=== PATIENT | male | born 1950 | race Caucasian/White ===

== ENCOUNTER 2016-06-07 05:04 | Inpatient (IN) | payer OTHER, BC ==
[~2016-06-07] VITALS: Ht 177.8 cm; Wt 93.0 kg
[~2016-06-07 05:04] MED LIST: ALLEGRA ALLERG180 MG PO; AMBIEN10 MG PO; ASPIRIN81 M2 PO; CARDIZEM CD360 MG PO; COZAAR100 MG PO; COZAAR50 MG PO; DIAZEPAM5 MG PO; DIGOX250 MCG PO; K-DUR20 MEQ PO; LO-DOSE ASPIRIN81 M2 PO; LOFIBRA134 MG PO; NORVASC5 MG PO; PRAVACHOL80 MG PO; PREDNISONE20 MG PO; TRAMADOL HCL50 MG PO; VALIUM5 MG PO
[2016-06-07 05:53] VITALS: BP 108/64
[2016-06-07] MEDS ORDERED: BACTRIM,SEPT1 TABLE1 PO (10:48)
[2016-06-07] MEDS ORDERED: ENDOCET 5-3251 EACH PO (10:48)
[2016-06-07] MEDS ORDERED: DOCUSATE SODIU100 MG PO (10:48)
[2016-06-07 13:52] VITALS: BP 121/71
[2016-06-07 15:20] LABS: HEMATOCRIT 40.7 % (38.0-50.0); MCV 87.7 FL (86-99)
[2016-06-07 16:42] VITALS: BP 111/65
[2016-06-07 19:08] VITALS: BP 107/62
[2016-06-07 22:30] VITALS: BP 116/56
[2016-06-08 03:09] VITALS: BP 127/61
[2016-06-08 06:08] LABS: HEMATOCRIT 36.7 % (38.0-50.0); MCH 30.5 PG (29.0-34.0); MCHC 34.1 G/DL (30.0-36.0); MCV 89.5 FL (86-99); MEAN PLAT.VOLUME 11.2 uM^3 (9.0-12.4); PLATELET COUNT 205 K/uL (156-360); RBC DIS.WIDTH-CV 14.3 % (11.8-14.6); RBC DIS.WIDTH-SD 46.5 % (39-53)
[2016-06-08 06:09] LABS: WHITE BLOOD COUNT 14.9 K/uL (4.1-10.2)
[2016-06-08 06:36] LABS: ANION GAP 9 MEQ/L (2-14); CHLORIDE 101 MEQ/L (99-109); GFR ESTIMATE (CALCULATED) > 59 mL/min/; GLUCOSE 129 mg/dL (70-99); POTASSIUM 4.2 MEQ/L (3.7-5.4); SAMPLE HEMOLYSIS CHECK 0; SAMPLE ICTERIC CHECK 0; SAMPLE LIPEMIA CHECK 0; SODIUM 136 MEQ/L (136-147); UREA NITROGEN (BUN) 16 mg/dL (9-23)
[2016-06-08 08:42] VITALS: BP 107/60
[2016-06-08 11:04] VITALS: BP 92/55
[2016-06-08 15:23] VITALS: BP 113/65
[2016-06-08 20:13] VITALS: BP 100/57
[2016-06-08 23:33] VITALS: BP 96/53
[2016-06-09] VITALS (9 sets, daily range): BP systolic 90–139; BP diastolic 54–69
[2016-06-10 04:04] VITALS: BP 94/59
[2016-06-10 06:13] LABS: HEMATOCRIT 32.9 % (38.0-50.0); MCH 30.9 PG (29.0-34.0); MCHC 34.3 G/DL (30.0-36.0); MCV 89.9 FL (86-99); MEAN PLAT.VOLUME 11.1 uM^3 (9.0-12.4); PLATELET COUNT 184 K/uL (156-360); RBC DIS.WIDTH-CV 13.4 % (11.8-14.6); RBC DIS.WIDTH-SD 44.1 % (39-53); RED BLOOD COUNT 3.66 M/uL (4.00-5.50); WHITE BLOOD COUNT 10.5 K/uL (4.1-10.2)
[2016-06-10 06:37] LABS: ANION GAP 7 MEQ/L (2-14); CHLORIDE 99 MEQ/L (99-109); GFR ESTIMATE (CALCULATED) > 59 mL/min/; GLUCOSE 119 mg/dL (70-99); POTASSIUM 3.9 MEQ/L (3.7-5.4); SAMPLE HEMOLYSIS CHECK 0; SAMPLE ICTERIC CHECK 0; SAMPLE LIPEMIA CHECK 0; SODIUM 133 MEQ/L (136-147); UREA NITROGEN (BUN) 13 mg/dL (9-23)
[2016-06-10 07:03] VITALS: BP 79/50
== END 2016-06-10 13:40 | disposition home or self-care (01) | DRG 708 ==
LOC: 2SOUTH 05:04 → 5EAST 05:28 → 2SOUTH 09:42 → 5EAST 13:23 → SDC 16:10 → EDSTATUS 16:11 → 2SOUTH 16:12 → 5EAST 06-10 13:40
PROVIDERS: Urology
DX: C61 Malignant neoplasm of prostate (principal); I10 Essential (primary) hypertension; E11.9 Type 2 diabetes mellitus without complications; E78.5 Hyperlipidemia, unspecified; M19.90 Unspecified osteoarthritis, unspecified site; Z87.891 Personal history of nicotine dependence
CPT/HCPCS: 80048; 85014; 85018; 85027; 88305; 88309; 94799; J0131; J0690; J1100; J1170; J2250; J2405; J2710; J3010; J7120; P9016

== ENCOUNTER 2016-08-01 10:45 | Inpatient (IN) | payer OTHER, BC ==
[~2016-08-01] VITALS: Ht 177.8 cm; Wt 98.1 kg
[2016-08-01] VITALS (7 sets, daily range): BP systolic 96–128; BP diastolic 62–80
[~2016-08-01 10:45] MED LIST changes: +BACTRIM,SEPT1 TABLE1 PO; +DOCUSATE SODIU100 MG PO; +ENDOCET 5-3251 EACH PO
[2016-08-01 11:39] LABS: EOSINOPHIL (%) 0.4 % (0-5); HEMATOCRIT 39.8 % (38.0-50.0); IMMATURE GRANULOCYTE (%) 0.3 % (0.0-0.7); INSTRUMENT ABS NEUTROPHIL CT 4.9 K/uL; LYMPHOCYTE COUNT 1.6 K/uL (1.0-2.8); MCH 30.3 PG (29.0-34.0); MCHC 33.4 G/DL (30.0-36.0); MCV 90.7 FL (86-99); MEAN PLAT.VOLUME 11.6 uM^3 (9.0-12.4); NEUTROPHIL (%) 65.1 % (45-76); NEUTROPHIL COUNT 4.9 K/uL (1.8-6.4); PLATELET COUNT 240 K/uL (156-360); RBC DIS.WIDTH-CV 13.9 % (11.8-14.6); RBC DIS.WIDTH-SD 46.5 % (39-53); RED BLOOD COUNT 4.39 M/uL (4.00-5.50); WHITE BLOOD COUNT 7.5 K/uL (4.1-10.2)
[2016-08-01 11:46] LABS: CHLORIDE 108 mEq/L (99-109)
[2016-08-01 11:47] LABS: POTASSIUM 4.4 mEq/L (3.7-5.4); SODIUM 137 mEq/L (136-147)
[2016-08-01 11:48] LABS: GLUCOSE 104 mg/dL (70-99)
[2016-08-01 11:49] LABS: INTER. NORMALIZED RATIO 1.1; PROTHROMBIN TIME 11.6 (9.2-11.2); PTT 25.2 (25-32)
[2016-08-01 11:50] LABS: ANION GAP 10 MEQ/L (2-14)
[2016-08-01 11:52] LABS: GFR ESTIMATE (CALCULATED) > 59 mL/min/
[2016-08-01 11:53] LABS: UREA NITROGEN (BUN) 15 mg/dL (9-23)
[2016-08-01 11:58] LABS: TROP-I INTERPRETATION NEGATIVE; TROPONIN-I < 0.01 ng/mL (0.0-0.30)
[2016-08-01 13:31] LABS: D-DIMER ELISA 0.49 mg/L FEU (< 0.57)
[2016-08-01 13:43] LABS: TROP-I INTERPRETATION NEGATIVE; TROPONIN-I < 0.01 ng/mL (0.0-0.30)
[2016-08-01 18:29] LABS: TROP-I INTERPRETATION NEGATIVE; TROPONIN-I < 0.01 ng/mL (0.0-0.30)
[2016-08-02 05:08] VITALS: BP 111/73
[2016-08-02 06:17] VITALS: BP 91/71
[2016-08-02 06:46] VITALS: BP 103/75
[2016-08-02 07:16] VITALS: BP 107/73
[2016-08-02 08:17] VITALS: BP 106/67
[2016-08-02 09:29] LABS: ANION GAP 9 MEQ/L (2-14); CHLORIDE 105 MEQ/L (99-109); GFR ESTIMATE (CALCULATED) > 59 mL/min/; GLUCOSE 133 mg/dL (70-99); POTASSIUM 4.2 MEQ/L (3.7-5.4); SAMPLE HEMOLYSIS CHECK 0; SAMPLE ICTERIC CHECK 0; SAMPLE LIPEMIA CHECK 0; SODIUM 138 MEQ/L (136-147); UREA NITROGEN (BUN) 15 mg/dL (9-23)
[2016-08-02 12:00] VITALS: BP 115/75
[2016-08-02] MEDS ORDERED: CARDIZEM60 MG PO (16:17)
[2016-08-02] MEDS ORDERED: ELIQUIS5 MG PO (16:17)
== END 2016-08-02 18:11 | disposition home or self-care (01) | DRG 310 ==
LOC: EME 10:45 → EDOF 12:20 → 4EAST 12:20
PROVIDERS: Emergency Medicine; Hospitalist
DX: I48.0 Paroxysmal atrial fibrillation (principal); Z85.46 Personal history of malignant neoplasm of prostate; I11.0 Hypertensive heart disease with heart failure; I50.9 Heart failure, unspecified; E78.5 Hyperlipidemia, unspecified; Z79.82 Long term (current) use of aspirin; Z87.891 Personal history of nicotine dependence
CPT/HCPCS: 71010; 80048; 83735; 83880; 84443; 84484; 85025; 85379; 85610; 85730; 93005; 93306; 99281; 99285; J1940; J7050

== ENCOUNTER 2016-10-18 20:50 | Inpatient (IN) | payer OTHER, BC ==
[~2016-10-18] VITALS: Ht 177.8 cm; Wt 99.4 kg
[~2016-10-18 20:50] MED LIST changes: +CARDIZEM60 MG PO; +ELIQUIS5 MG PO
[2016-10-18 21:29] LABS: HEMATOCRIT 41.4 % (38.0-50.0); MCH 30.7 PG (29.0-34.0); MCHC 35.3 G/DL (30.0-36.0); MEAN PLAT.VOLUME 10.4 uM^3 (9.0-12.4); PLATELET COUNT 167 K/uL (156-360); RBC DIS.WIDTH-CV 13.3 % (11.8-14.6); RBC DIS.WIDTH-SD 42.3 % (39-53); RED BLOOD COUNT 4.76 M/uL (4.00-5.50); WHITE BLOOD COUNT 10.3 K/uL (4.1-10.2)
[2016-10-18 22:12] LABS: ANION GAP 10 MEQ/L (2-14); CHLORIDE 97 MEQ/L (99-109); POTASSIUM 4.2 MEQ/L (3.7-5.4); SAMPLE HEMOLYSIS CHECK 0; SAMPLE ICTERIC CHECK 0; SAMPLE LIPEMIA CHECK 0; SODIUM 131 MEQ/L (136-147)
[2016-10-18 22:18] LABS: GFR ESTIMATE (CALCULATED) > 59 mL/min/; GLUCOSE 118 mg/dL (70-99); UREA NITROGEN (BUN) 16 mg/dL (9-23)
[2016-10-19 00:14] LABS: TROP-I INTERPRETATION NEGATIVE; TROPONIN-I < 0.01 ng/mL (0.0-0.30)
[2016-10-19] MEDS ORDERED: CARDIZEM CD180 MG PO (00:16)
[2016-10-19 02:34] VITALS: BP 131/87
[2016-10-19 08:12] LABS: POINT-OF-CARE METER ID UU13113700
[2016-10-19 08:18] VITALS: BP 123/70
[2016-10-19 10:26] LABS: EOSINOPHIL (%) 0 % (0-5); HEMATOCRIT 41.1 % (38.0-50.0); IMMATURE GRANULOCYTE (%) 0.8 % (0.0-0.7); IMMATURE GRANULOCYTE COUNT 0.1 K/uL; INSTRUMENT ABS NEUTROPHIL CT 7.1 K/uL; LYMPHOCYTE COUNT 0.5 K/uL (1.0-2.8); MCH 31.3 PG (29.0-34.0); MCHC 35.5 G/DL (30.0-36.0); MCV 88.2 FL (86-99); MONOCYTE (%) 1.8 % (3-12); MONOCYTE COUNT 0.1 K/uL (0-0.8); NEUTROPHIL (%) 90.4 % (45-76); NEUTROPHIL COUNT 7.1 K/uL (1.8-6.4); PLATELET COUNT 168 K/uL (156-360); RBC DIS.WIDTH-CV 13.6 % (11.8-14.6); RBC DIS.WIDTH-SD 43.8 % (39-53); RED BLOOD COUNT 4.66 M/uL (4.00-5.50); WHITE BLOOD COUNT 7.9 K/uL (4.1-10.2)
[2016-10-19 10:59] LABS: ANION GAP 12 MEQ/L (2-14); CHLORIDE 103 MEQ/L (99-109); GFR ESTIMATE (CALCULATED) > 59 mL/min/; POTASSIUM 4.1 MEQ/L (3.7-5.4); SAMPLE HEMOLYSIS CHECK 0; SAMPLE ICTERIC CHECK 0; SAMPLE LIPEMIA CHECK 0; SODIUM 135 MEQ/L (136-147); UREA NITROGEN (BUN) 15 mg/dL (9-23)
[2016-10-19 11:02] LABS: GLUCOSE 230 mg/dL (70-99)
[2016-10-19 11:37] VITALS: BP 111/64
[2016-10-19 12:31] LABS: POINT-OF-CARE METER ID UU14162513
[2016-10-19 15:44] VITALS: BP 130/70
[2016-10-19 19:00] VITALS: BP 130/71
[2016-10-19 20:46] LABS: POINT-OF-CARE METER ID UU14162513
[2016-10-20 00:02] VITALS: BP 107/56
[2016-10-20 04:03] VITALS: BP 121/80
[2016-10-20 05:55] LABS: HEMATOCRIT 41.2 % (38.0-50.0); MCH 30.5 PG (29.0-34.0); MCHC 34.2 G/DL (30.0-36.0); MCV 89.2 FL (86-99); MEAN PLAT.VOLUME 10.9 uM^3 (9.0-12.4); PLATELET COUNT 189 K/uL (156-360); RBC DIS.WIDTH-CV 13.4 % (11.8-14.6); RBC DIS.WIDTH-SD 43.8 % (39-53); RED BLOOD COUNT 4.62 M/uL (4.00-5.50)
[2016-10-20 06:23] LABS: ANION GAP 9 MEQ/L (2-14); CHLORIDE 105 MEQ/L (99-109); GFR ESTIMATE (CALCULATED) > 59 mL/min/; GLUCOSE 195 mg/dL (70-99); POTASSIUM 4.6 MEQ/L (3.7-5.4); SAMPLE HEMOLYSIS CHECK 0; SAMPLE ICTERIC CHECK 0; SAMPLE LIPEMIA CHECK 0; SODIUM 137 MEQ/L (136-147); UREA NITROGEN (BUN) 20 mg/dL (9-23)
[2016-10-20 07:21] VITALS: BP 120/68
[2016-10-20] MEDS ORDERED: LEVAQUIN750 MG PO (10:12)
[2016-10-20] MEDS ORDERED: PREDNISONE10 MG PO (10:14)
== END 2016-10-20 12:40 | disposition home or self-care (01) | DRG 189 ==
LOC: EME 20:50 → EDOF 10-19 01:09 → 5WEST 10-19 02:23
PROVIDERS: Hospitalist; Internal Medicine
DX: J96.01 Acute respiratory failure with hypoxia (principal); J20.9 Acute bronchitis, unspecified; I48.0 Paroxysmal atrial fibrillation; Z87.891 Personal history of nicotine dependence; I10 Essential (primary) hypertension; E78.5 Hyperlipidemia, unspecified; Z85.46 Personal history of malignant neoplasm of prostate; E66.9 Obesity, unspecified; Z68.31 Body mass index [BMI] 31.0-31.9, adult
CPT/HCPCS: 71020; 80048; 82948; 84484; 85025; 85027; 87040; 93005; 94640; 99202; 99281; 99285; J1100; J1956; J2920; J7030; S0028